=== PATIENT | female | born 1950 | race Caucasian/White ===

== ENCOUNTER 2020-11-16 18:09 | Inpatient (IN) | payer MEDICARE, OTHER ==
[~2020-11-16] VITALS: Ht 157.5 cm; Wt 68.9 kg
[2020-11-16 18:38] LABS: HEMOGLOBIN 12.5 gm/dl (12.3-15.3); RED BLOOD COUNT 3.87 M/UL (4.00-5.10); WHITE BLOOD COUNT 13.5 K/UL (4.5-11.0)
[2020-11-16 19:02] LABS: BUN/CREATININE RATIO 12 (0-10)
[2020-11-17] MEDS ORDERED: ZOFRAN 4 MG TAB4 MG PO (09:35)
[2020-11-17] MEDS ORDERED: PROVENTIL HFA6.7 GM INH (09:35)
[2020-11-17] MEDS ORDERED: LEVOTHYROXINE100 MCG PO (09:36)
[2020-11-17] MEDS ORDERED: CETIRIZINE HCL10 MG PO (09:36)
[2020-11-17] MEDS ORDERED: DULOXETINE HCL30 MG PO (09:36)
[2020-11-17] MEDS ORDERED: ELIQUIS5 MG PO (09:36)
[2020-11-17] MEDS ORDERED: MONTELUKAST SOD10 MG PO (09:37)
[2020-11-17] MEDS ORDERED: PROTONIX 40 MG40 M1 PO (09:37)
[2020-11-17] MEDS ORDERED: POTASSIUM CHLO20 ME2 PO (09:37)
[2020-11-17] MEDS ORDERED: CRESTOR20 MG PO ×2 (09:42→09:43)
[2020-11-17] MEDS ORDERED: HYDROCHLOROTHIA25 MG PO (09:46)
[2020-11-17] MEDS ORDERED: LOSARTAN POTAS100 MG PO (09:47)
[2020-11-17] MEDS ORDERED: METOPROLOL SUCC50 MG PO (09:48)
== END 2020-11-17 18:00 | disposition left against medical advice (07) | DRG 177 ==
LOC: EDBD 18:09 → ER1 18:09 → CDU 11-17 03:07
PROVIDERS: Student in an Organized Health Care Education/Training Program; ADMIT Internal Medicine
PROC: 3E0333Z Introduction of Anti-inflammatory into Peripheral Vein, Percutaneous Approach (ICD-10-PCS; principal; 2020-11-17)
PROC: 8E0ZXY6 Isolation (ICD-10-PCS; 2020-11-17)
PROC: XW033E5 Introduction of Remdesivir Anti-infective into Peripheral Vein, Percutaneous Approach, New Technology Group 5 (ICD-10-PCS; 2020-11-17)
PROC: 3E02340 Introduction of Influenza Vaccine into Muscle, Percutaneous Approach (ICD-10-PCS; 2020-11-17)
DX: U07.1 COVID-19 (principal); J96.01 Acute respiratory failure with hypoxia; J12.82 Pneumonia due to coronavirus disease 2019; I48.0 Paroxysmal atrial fibrillation; I10 Essential (primary) hypertension; E89.0 Postprocedural hypothyroidism; F17.210 Nicotine dependence, cigarettes, uncomplicated; Z90.49 Acquired absence of other specified parts of digestive tract; Z23 Encounter for immunization; Z79.01 Long term (current) use of anticoagulants; Z90.89 Acquired absence of other organs; Z82.5 Family history of asthma and other chronic lower respiratory diseases
CPT/HCPCS: 71045; 71250; 80053; 82550; 82553; 83605; 83615; 83874; 84484; 85025; 86140; 87040; 93005; 94640; 94664; 94760; 96365; 96375; 96376; 99285; G0378; J0456; J0696; J1100; J2405; J7030; U0002